=== PATIENT | female | born 2000 | race Caucasian/White ===

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

== ENCOUNTER 2018-06-08 11:51 | Emergency (ER) | payer SELFPAY ==
[~2018-06-08] VITALS: Ht 157.5 cm; Wt 50.0 kg
[~2018-06-08 11:51] MED LIST changes: -NORMAL SALINE IV ONE; +RANI150T21 PO; -RANI150T6 PO; -SINCALIDE IV ONE
--- NOTE | 2018-06-08 12:11 | PHYS DOC ---
Past History Past Medical History: No Pertinent History Past Surgical History: No Surgical History Smoking: Non-smoker Alcohol Use: None Drug Use: Marijuana Adult General Chief Complaint Chief Complaint: ABDOMINAL PAIN HPI HPI Patient is a 18-year-old female who presents with complaint of lower abdominal cramping that started 2 days ago. She also indicates that she has been having some nausea but no vomiting. Patient states that she is late on her menstrual cycle and believes that she could be but she also indicates that she has similar symptoms before her menstrual cycle starts. She rates pain as moderate. She denies any fever. She does admit to some urinary discomfort. Review of Systems Review of Systems Constitutional: Denies fever or chills [] Respiratory: Denies cough or shortness of breath [] Cardiovascular: No additional information not addressed in HPI [] GI: Complains of lower abdominal cramping with nausea. Denies vomiting or diarrhea [] : Positive dysuria without hematuria [] Musculoskeletal: Denies back pain or joint pain [] All other systems were reviewed and found to be within normal limits, except as documented in this note. Allergies Allergies Allergies Coded Allergies Type Severity Reaction Last Updated Verified No Known Drug Allergies 10/15/16 No Physical Exam Physical Exam Constitutional: Well developed, well nourished, no acute distress, non-toxic appearance. [] HENT: Normocephalic, atraumatic, bilateral external ears normal, oropharynx moist, no oral exudates, nose normal. [] Eyes: PERRLA, EOMI, conjunctiva normal, no discharge. [] Neck: Normal range of motion, no tenderness, supple, no stridor. [] Cardiovascular:Heart rate regular rhythm, no murmur [] Lungs & Thorax: Bilateral breath sounds clear to auscultation [] Abdomen: Bowel sounds normal, soft, no tenderness. [] Skin: Warm, dry, no erythema, no rash. [] Extremities: No tenderness, no cyanosis, no clubbing, ROM intact, no edema. [] Neurologic: Alert and oriented X 3, no focal deficits noted. [] EKG EKG [] Radiology/Procedures Radiology/Procedures [] Course & Med Decision Making Course & Med Decision Making Pertinent Labs and Imaging studies reviewed. (See chart for details) [] Dragon Disclaimer Dragon Disclaimer This electronic medical record was generated, in whole or in part, using a voice recognition dictation system. Departure Departure: Impression: Primary Impression: Abdominal pain affecting Disposition: HOME, SELF-CARE Condition: STABLE Referrals: MANOLO CEOLLO MD (PCP) Patient Instructions: Abdominal Pain During Scripts Ondansetron Hcl (ZOFRAN) 4 Mg Tablet 4 MG PO Q6HRS PRN for NAUSEA, #12 TAB Prov: BOB SCALES Jr. DO 06/08/18 BOB SCALES Jr. DO June 08, 2018 12:10
[2018-06-08 12:30] LABS: BASO % 1 % (0-3); EOS # 0.1 x10^3/uL (0.0-0.7); EOS % 2 % (0-3); HEMATOCRIT 39.7 % (36.0-47.0); HEMOGLOBIN 13.6 g/dL (12.0-15.5); LYMPH # 2.1 x10^3/uL (1.0-4.8); LYMPH % 30 % (24-48); MEAN CORPUSCULAR HEMOGLOBIN 29 pg (25-35); MEAN CORPUSCULAR HGB CONC 34 g/dL (31-37); MEAN CORPUSCULAR VOLUME 83 fL (79-100); MONO # 0.4 x10^3/uL (0.0-1.1); MONO % 6 % (0-9); NEUT # 4.2 x10^3uL (1.8-7.7); NEUT % 62 % (31-73); PLATELET COUNT 319 x10^3/uL (140-400); RED BLOOD COUNT 4.76 x10^6/uL (3.50-5.40); RED CELL DISTRIBUTION WIDTH 15.6 % (11.5-14.5); WHITE BLOOD COUNT 6.8 x10^3/uL (4.0-11.0)
[2018-06-08 12:38] LABS: BILIRUBIN,URINE NEG (NEG); CLARITY,URINE CLOUDY; COLOR,URINE YELLOW; GLUCOSE,URINE NEG (NEG)
[2018-06-08 12:39] LABS: BACTERIA,URINE MANY /HPF (0-FEW); NITRITE,URINE NEG (NEG); RBC,URINE 0 /HPF (0-2); SQUAMOUS EPITHELIAL CELL,UR MANY /LPF; UROBILINOGEN,URINE 0.2 mg/dL (0.2 mg/dL)
[2018-06-08 12:47] LABS: ALBUMIN 4.3 g/dL (3.4-5.0); ALBUMIN/GLOBULIN RATIO 1.3 (1.0-1.7); CALCIUM 9.5 mg/dL (8.5-10.1); CREATININE 0.7 mg/dL (0.6-1.0); GFR 106.7; POTASSIUM 4.1 mmol/L (3.5-5.1); TOTAL BILIRUBIN 0.5 mg/dL (0.2-1.0); TOTAL PROTEIN 7.5 g/dL (6.4-8.2)
[2018-06-08 13:31] VITALS: BP 121/80
[2018-06-08] MEDS ORDERED: ONDA4TAB7 PO (13:33)
== END 2018-06-08 13:35 | disposition home or self-care (01) ==
LOC: ER 11:51
DX: Z33.1 Pregnant state, incidental (principal); R10.30 Lower abdominal pain, unspecified; R11.0 Nausea
CPT/HCPCS: 36415; 80053; 81001; 81025; 84702; 85025; 87086; 99284

== ENCOUNTER 2018-12-10 05:27 | Emergency (ER) | payer OTHER ==
[~2018-12-10] VITALS: Ht 160 cm; Wt 70.3 kg
[~2018-12-10 05:27] MED LIST changes: +ONDA4TAB7 PO; +RANI-376 PO; -RANI150T21 PO
[2018-12-10] MEDS ORDERED: ONDANSETRON PF 4 MG/2 ML VIAL. IVP ONE (06:00)
[2018-12-10] MEDS ORDERED: IV NORMAL SALINE 1,000ML 1,000 ML IV ONE (06:00)
[2018-12-10] MEDS ORDERED: FAMOTIDINE 20 MG/2 ML VIAL IVP ONE (06:00)
--- NOTE | 2018-12-10 06:23 | PHYS DOC ---
Past History Past Medical History: No Pertinent History (AMANDA NEWMAN DO) Past Surgical History: No Surgical History (AMANDA NEWMAN DO) Smoking: Non-smoker Alcohol Use: None Drug Use: None, Marijuana (AMANDA NEWMAN DO) Adult General Chief Complaint Chief Complaint: ABDOMINAL PAIN IN HPI HPI 18-year-old female presents as at approximately 7 months with report of abdominal discomfort with associated nausea and vomiting. Denies fever. Denies dysuria. Denies trauma. Denies vaginal bleeding or discharge. Patient reports she is to deliver at [facility]. 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 (AMANDA NEWMAN DO) Current Medications Current Medications Current Medications Medications (Trade) Dose Ordered Sig/Ashley Start Time Stop Time Status Last Admin Dose Admin Famotidine (Pepcid Vial) 20 mg 1X ONCE 12/10/18 06:00 12/10/18 06:07 DC 12/10/18 06:17 20 MG Ondansetron HCl (Zofran) 4 mg 1X ONCE 12/10/18 06:00 12/10/18 06:07 DC 12/10/18 06:17 4 MG Sodium Chloride 1,000 ml @ 1,000 mls/hr 1X ONCE 12/10/18 06:00 12/10/18 06:59 12/10/18 06:17 1,000 MLS/HR (AMANDA NEWMAN DO) Allergies Allergies Allergies Coded Allergies Type Severity Reaction Last Updated Verified No Known Drug Allergies 10/15/16 No (AMANDA NEWMAN DO) Physical Exam Physical Exam Constitutional: Well developed, well nourished, no acute distress, non-toxic appearance HENT: Normocephalic, atraumatic, oropharynx moist Eyes: Conjunctiva normal, no discharge Neck: Normal range of motion, no tenderness, supple Cardiovascular: Heart rate normal, regular rhythm Lungs & Thorax: Bilateral breath sounds clear to auscultation, no wheezing Abdomen: Soft, gravid uterus, no guarding/rebound tenderness Skin: Warm, dry, no erythema, no rash Extremities: No tenderness, ROM intact, no edema Neurologic: Alert and oriented X 3, no focal deficits noted Psychologic: Affect normal, judgement normal (AMANDA NEWMAN DO) Current Patient Data Vital Signs Vital Signs Date Time Temp Pulse Resp B/P (MAP) Pulse Ox O2 Delivery O2 Flow Rate FiO2 12/10/18 05:37 98.5 108 16 98 Room Air (AMANDA NEWMAN DO) EKG EKG [] (AMANDA NEWMAN DO) Radiology/Procedures Radiology/Procedures [] (AMANDA NEWMAN DO) Impressions: EXAM: Obstetric ultrasound. HISTORY: Abdominal pain in . COMPARISON: None. FINDINGS: Sonographic evaluation of the pelvis and fetus was performed transabdominally. There is a single fetus in breech presentation. heart rate is 143 bpm. Estimated gestational age based on measurements is 32 weeks 6 days. Estimated weight is 1952 g. Biparietal diameter, head circumference, abdominal circumference and femur length are commensurate. The placenta is posterior. Amniotic fluid index is 11.2 cm. Limited images reveal no anomalies. The cervix is not well visualized currently. IMPRESSION: 1. Single fetus in breech presentation. Estimated gestational age 32 weeks 6 days. heart rate 143 bpm. Electronically signed by: Hasmukh Elliott MD (12/10/2018 8:06 AM) [facility] DICTATED AND SIGNED BY: TIGRE ELLIOTT MD DATE: 12/10/18805 CC: SULLY SHIPLEY DO; MANOLO COELLO MD; AMANDA NEWMAN DO ~ (SULLY SHIPLEY DO) Course & Med Decision Making Course & Med Decision Making Pertinent Labs and Imaging studies reviewed. (See chart for details) patient presents at 7 months with report of abdominal discomfort with associated nausea and vomiting. Symptomatic treatment provided. IV fluid hydration given. Labs obtained and pending. OB ultrasound ordered and pending. Sign out given to Dr. Shipley for further evaluation and final disposition. Discussed current findings and plan with patient and family, who acknowledge understanding and agreement. (AMANDA NEWMAN DO) Course & Med Decision Making The patient's ultrasound shows a live baby in the uterus and break presentation. No obvious abnormalities are noted. See official report for more details. The patient's urinalysis is suggestive of UTI. I will treat her with fosfomycin in the ED. She is feeling better at this time would like to go home. She has not had any bleeding or contractions. She is stable for discharge at this time. I have discussed with the patient that if she has abdominal pain the rest of her she should consider calling her OB and/or going to the [place] This would allow for the most resources to be immediately available for her baby. (SULLY SHIPLEY DO) Dragon Disclaimer Dragon Disclaimer This electronic medical record was generated, in whole or in part, using a voice recognition dictation system. (AMANDA NEWMAN DO) Departure Departure: Impression: Primary Impression: Abdominal pain in Additional Impression: UTI (urinary tract infection) Disposition: 01 HOME, SELF-CARE Condition: STABLE Referrals: MANOLO COELLO MD (PCP) Patient Instructions: Abdominal Pain During , [id number], - Urinary Tract Infection Problem Qualifiers Primary Impression: Abdominal pain in Trimester: third trimester Qualified Codes: O26.893 - Other specified related conditions, third trimester; R10.9 - Unspecified abdominal pain Additional Impression: UTI (urinary tract infection) Urinary tract infection type: acute cystitis Hematuria presence: without hematuria Qualified Codes: N30.00 - Acute cystitis without hematuria AMANDA NEWMAN DO Dec 10, 2018 06:23 SULYL SHIPLEY DO Dec 10, 2018 08:19
[2018-12-10 06:38] LABS: BASO % 0 % (0-3); EOS % 0 % (0-3); HEMATOCRIT 36.9 % (36.0-47.0); HEMOGLOBIN 12.1 g/dL (12.0-15.5); LYMPH % 8 % (24-48); MEAN CORPUSCULAR HEMOGLOBIN 27 pg (25-35); MEAN CORPUSCULAR HGB CONC 33 g/dL (31-37); MEAN CORPUSCULAR VOLUME 81 fL (79-100); MONO # 0.8 x10^3/uL (0.0-1.1); MONO % 6 % (0-9); NEUT # 10.5 x10^3uL (1.8-7.7); NEUT % 85 % (31-73); PLATELET COUNT 258 x10^3/uL (140-400); RED BLOOD COUNT 4.57 x10^6/uL (3.50-5.40); RED CELL DISTRIBUTION WIDTH 14.3 % (11.5-14.5); WHITE BLOOD COUNT 12.3 x10^3/uL (4.0-11.0)
[2018-12-10 06:49] LABS: BILIRUBIN,URINE NEG (NEG); CLARITY,URINE HAZY; COLOR,URINE YELLOW; GLUCOSE,URINE NEG (NEG); NITRITE,URINE NEG (NEG); UROBILINOGEN,URINE 2 mg/dL (0.2 mg/dL)
[2018-12-10 06:50] LABS: ALBUMIN 2.7 g/dL (3.4-5.0); ALBUMIN/GLOBULIN RATIO 0.6 (1.0-1.7); CALCIUM 8.3 mg/dL (8.5-10.1); CREATININE 0.4 mg/dL (0.6-1.0); GFR 203.5; MAGNESIUM 1.5 mg/dL (1.8-2.4); POTASSIUM 3.6 mmol/L (3.5-5.1); TOTAL BILIRUBIN 0.2 mg/dL (0.2-1.0)
[2018-12-10 06:50] LABS: BACTERIA,URINE MOD /HPF (0-FEW); SQUAMOUS EPITHELIAL CELL,UR MANY /LPF
--- NOTE | 2018-12-10 08:09 | RAD ---
EXAM: Obstetric ultrasound. HISTORY: Abdominal pain in . COMPARISON: None. FINDINGS: Sonographic evaluation of the pelvis and fetus was performed transabdominally. There is a single fetus in breech presentation. heart rate is 143 bpm. Estimated gestational age based on measurements is 32 weeks 6 days. Estimated weight is 1952 g. Biparietal diameter, head circumference, abdominal circumference and femur length are commensurate. The placenta is posterior. Amniotic fluid index is 11.2 cm. Limited images reveal no anomalies. The cervix is not well visualized currently. IMPRESSION: 1. Single fetus in breech presentation. Estimated gestational age 32 weeks 6 days. heart rate 143 bpm. Electronically signed by: Hasmukh Elliott MD (12/10/2018 8:06 AM) [facility]
[2018-12-10] MEDS ORDERED: FOSFOMYCIN TROMETHAMINE 3 GM PACKET PO ONE (08:30)
== END 2018-12-10 09:20 | disposition home or self-care (01) ==
LOC: ER 05:27
DX: O23.43 Unspecified infection of urinary tract in pregnancy, third trimester (principal); O21.9 Vomiting of pregnancy, unspecified; Z3A.32 32 weeks gestation of pregnancy
CPT/HCPCS: 36415; 76815; 80053; 81001; 83690; 83735; 85025; 87086; 96361; 96374; 96375; 99285; J2405; J3490; J7030

== ENCOUNTER 2019-01-29 16:33 | Emergency (ER) | payer OTHER ==
[~2019-01-29] VITALS: Ht 160 cm; Wt 50.0 kg
[2019-01-29] MEDS ORDERED: IV NORMAL SALINE 1,000ML 1,000 ML IV SCH (17:11)
[2019-01-29] MEDS ORDERED: KETOROLAC 30 MG/ML VIAL. IVP ONE (17:15)
--- NOTE | 2019-01-29 17:27 | PHYS DOC ---
Past History Past Medical History: No Pertinent History, Other Additional Past Medical Histor: preeclampsia (AYUSH URBINA DO) Past Surgical History: (AYUSH URBINA DO) Smoking: Non-smoker Alcohol Use: None Drug Use: None (AYUSH URBINA DO) Adult General Chief Complaint Chief Complaint: ABDOMINAL PAIN HPI HPI Patient is a 18-year-old female presents with lower abdominal pain/pelvic pain. She had a 9 days ago for preeclampsia, was released from [facility] 6 days ago after the . She has not yet filled her blood pressure medication. She pain has not changed in intensity since the procedure, nor since discharge. She has been taking her Percocet along with laxatives. Last bowel movement was yesterday. Increased pain with movement. She reports her incision site looks good, better than her first . She also notes some left back discomfort since coming home. Denies any cough or fever. Denies any dysuria or hematuria. Notes there is a mild amount of vaginal bleeding that has been waxing and waning but improving over time. She denies any trauma or bruising. Symptoms are 7 out of 10 in intensity.[] (AYUSH URBINA DO) Review of Systems Review of Systems Constitutional: Denies fever or chills [] Eyes: Denies change in visual acuity, redness, or eye pain [] HENT: Denies nasal congestion or sore throat [] Respiratory: Denies cough or shortness of breath [] Cardiovascular: No chest pain or palpitations[] GI: Denies bloody stools or diarrhea, see history of present illness [] : Denies dysuria or hematuria [] Musculoskeletal: See history of present illness[] Integument: Denies rash or skin lesions [] Neurologic: Denies headache, focal weakness or sensory changes [] Endocrine: Denies polyuria or polydipsia [] All other systems were reviewed and found to be within normal limits, except as documented in this note. (AYUSH URBINA DO) Allergies Allergies Allergies Coded Allergies Type Severity Reaction Last Updated Verified No Known Drug Allergies 10/15/16 No (AYUSH URBINA DO) Physical Exam Physical Exam Constitutional: Well developed, well nourished, no acute distress, non-toxic appearance. [] HENT: Normocephalic, atraumatic, bilateral external ears normal, oropharynx moist, no oral exudates, nose normal. [] Eyes: PERRLA, EOMI, conjunctiva normal, no discharge. [] Neck: Normal range of motion, no tenderness, supple, no stridor. [] Cardiovascular:Heart rate regular rhythm, no murmur [] Lungs & Thorax: Bilateral breath sounds clear to auscultation, no Rales, rhonchi, nor wheezes [] Abdomen: Bowel sounds normal, soft, suprapubic tenderness, bilaterally, no rebound, no guarding, no rigidity, able to sit up and lie back however with some discomfort, no masses, no pulsatile masses. Incision appears to be clean and dry, no active bleeding, no significant erythema, no drainage[] Skin: Warm, dry, no erythema, no rash. [] Back: Left midthoracic region has some tenderness to palpation. No subcutaneous emphysema, no crepitus., no CVA tenderness. [] Extremities: No tenderness, no cyanosis, no clubbing, ROM intact, no edema. [] Neurologic: Alert and oriented X 3, normal motor function, normal sensory function, no focal deficits noted. [] Psychologic: Affect normal, judgement normal, mood normal. [] (AYUSH URBINA DO) EKG EKG [] (AYUSH URBINA DO) Radiology/Procedures Radiology/Procedures [] (AYUSH URBINA DO) Impressions: PORTABLE CHEST 1V History: . Mid thoracic discomfort. Comparison: None. Findings: No consolidation or pleural effusion. Normal heart size. No pneumothorax. Impression: 1. No acute cardiopulmonary process. Electronically signed by: Tonio Mendiola DO (01/29/2019 6:34 PM) [facility] DICTATED AND SIGNED BY: TONIO MENDIOLA DO DATE: 01/29/19 183 CC: AYUSH URBINA DO; MANOLO COELLO MD ~ US PELVIS History: Pelvic pain. 9 days . . Comparison: None. Technique: Grayscale and color Doppler imaging of the pelvis was performed using transabdominal technique. Findings: The uterus measures 15.9 x 11.1 x 7.1 cm in length. Uterus has an unremarkable appearance. The endometrial stripe measures 1.37 cm. Small amount of fluid within the endometrial canal. No increased blood flow within the endometrial canal to suggest retained products of conception. Right ovary measures 3.1 x 2.0 x 1.4 cm and is unremarkable. Left ovary measures 3.5 x 3.9 x 1.8 cm and is unremarkable. No adnexal masses are seen. IMPRESSION: 1. Enlarged uterus. 2. Small amount of fluid within the major canal. No evidence of retained products of conception. Electronically signed by: Tonio Mendiola DO (01/29/2019 7:29 PM) [facility] DICTATED AND SIGNED BY: TONIO MENDIOLA DO DATE: 01/29/191928 CC: SULLY SHIPLEY DO; AYUSH URBINA DO; MANOLO COELLO MD ~ (SULLY SHIPLEY DO) Course & Med Decision Making Course & Med Decision Making Pertinent Labs and Imaging studies reviewed. (See chart for details) Emergency department course: Patient arrived, was placed in bed, and tolerated exam well. IV access was established, fluids and pain medicine were administered. Patient care was endorsed to the nighttime physician at 1800 with laboratory and imaging testing pending/in process. Medical decision making: Differential includes but is not limited to retained products of conception, obstruction, perforation, complications of preeclampsia, especially in light of her elevated blood pressure and her not taking the prev iously prescribed medicines, pneumonia, pneumothorax. Urinary tract infection/pyelonephritis.[] (AYUSH URBINA DO) Course & Med Decision Making The patient's labs are unremarkable. Her chest x-ray is unremarkable. Her pelvic ultrasound shows an enlarged uterus, but no retained products of conception. We have given her pain medication. She will need to follow up with her [employer] tomorrow. She is stable for discharge at this time. (SULLY SHIPLEY DO) Dragon Disclaimer Dragon Disclaimer This electronic medical record was generated, in whole or in part, using a voice recognition dictation system. (AYUSH URBINA DO) Departure Departure: Impression: Primary Impression: Postoperative abdominal pain Disposition: 01 HOME, SELF-CARE Condition: STABLE Referrals: MANOLO COELLO MD (PCP) Patient Instructions: Abdominal Pain, Women Scripts Oxycodone Hcl (OXYCODONE HCL IMMED.RELEASE ) 5 Mg Tablet 5 MG PO PRN Q6HRS PRN for PAIN, #10 TAB Prov: SULLY SHIPLEY DO 01/29/19 AYUSH URBINA DO Jan 29, 2019 17:27 SULLY SHIPLEY DO Jan 29, 2019 19:26
[2019-01-29 18:06] LABS: BASO # 0.1 x10^3/uL (0.0-0.2); BASO % 1 % (0-3); EOS # 0.2 x10^3/uL (0.0-0.7); EOS % 4 % (0-3); HEMATOCRIT 36.6 % (36.0-47.0); HEMOGLOBIN 11.9 g/dL (12.0-15.5); LYMPH # 2.2 x10^3/uL (1.0-4.8); LYMPH % 31 % (24-48); MEAN CORPUSCULAR HEMOGLOBIN 25 pg (25-35); MEAN CORPUSCULAR HGB CONC 32 g/dL (31-37); MEAN CORPUSCULAR VOLUME 78 fL (79-100); MONO # 0.5 x10^3/uL (0.0-1.1); MONO % 7 % (0-9); NEUT # 4.1 x10^3uL (1.8-7.7); NEUT % 58 % (31-73); PLATELET COUNT 564 x10^3/uL (140-400); RED BLOOD COUNT 4.72 x10^6/uL (3.50-5.40); RED CELL DISTRIBUTION WIDTH 16.3 % (11.5-14.5); WHITE BLOOD COUNT 7.2 x10^3/uL (4.0-11.0)
[2019-01-29 18:15] LABS: CALCIUM 8.9 mg/dL (8.5-10.1); CREATININE 0.7 mg/dL (0.6-1.0); GFR 106.7; POTASSIUM 3.7 mmol/L (3.5-5.1)
[2019-01-29 18:20] LABS: ALBUMIN 3.5 g/dL (3.4-5.0); ALBUMIN/GLOBULIN RATIO 0.8 (1.0-1.7); TOTAL BILIRUBIN 0.2 mg/dL (0.2-1.0); TOTAL PROTEIN 7.9 g/dL (6.4-8.2)
--- NOTE | 2019-01-29 18:37 | RAD ---
PORTABLE CHEST 1V History: . Mid thoracic discomfort. Comparison: None. Findings: No consolidation or pleural effusion. Normal heart size. No pneumothorax. Impression: 1. No acute cardiopulmonary process. Electronically signed by: Tonio Mendiola DO (01/29/2019 6:34 PM) [facility]
[2019-01-29 18:46] LABS: BILIRUBIN,URINE NEG (NEG); CLARITY,URINE CLEAR; COLOR,URINE YELLOW; GLUCOSE,URINE NEG (NEG)
[2019-01-29 18:47] LABS: BACTERIA,URINE 0 /HPF (0-FEW); NITRITE,URINE NEG (NEG); SQUAMOUS EPITHELIAL CELL,UR FEW /LPF; UROBILINOGEN,URINE 0.2 mg/dL (0.2 mg/dL); WBC,URINE OCC /HPF (0-4)
--- NOTE | 2019-01-29 19:32 | RAD ---
US PELVIS History: Pelvic pain. 9 days . . Comparison: None. Technique: Grayscale and color Doppler imaging of the pelvis was performed using transabdominal technique. Findings: The uterus measures 15.9 x 11.1 x 7.1 cm in length. Uterus has an unremarkable appearance. The endometrial stripe measures 1.37 cm. Small amount of fluid within the endometrial canal. No increased blood flow within the endometrial canal to suggest retained products of conception. Right ovary measures 3.1 x 2.0 x 1.4 cm and is unremarkable. Left ovary measures 3.5 x 3.9 x 1.8 cm and is unremarkable. No adnexal masses are seen. IMPRESSION: 1. Enlarged uterus. 2. Small amount of fluid within the major canal. No evidence of retained products of conception. Electronically signed by: Tonio Mendiola DO (01/29/2019 7:29 PM) [facility]
[2019-01-29 19:45] VITALS: BP 157/97
[2019-01-29] MEDS ORDERED: OXYC5TAB4 PO (19:49)
[2019-01-29] MEDS ORDERED: oxyCODONE IR 5 MG TABLET PO STA (20:10)
[2019-01-29] MEDS ORDERED: OXYC-325 PO (20:30)
== END 2019-01-29 20:35 | disposition home or self-care (01) ==
LOC: ER 16:33
DX: O90.89 Other complications of the puerperium, not elsewhere classified (principal); R10.31 Right lower quadrant pain; R10.32 Left lower quadrant pain; M54.6 Pain in thoracic spine; Z98.890 Other specified postprocedural states
CPT/HCPCS: 36415; 71045; 76856; 80053; 81001; 83690; 85025; 85610; 85730; 96374; 99285; J1885; J7030

== ENCOUNTER 2020-07-11 03:22 | Emergency (ER) | payer OTHER ==
[~2020-07-11] VITALS: Ht 160 cm; Wt 83.6 kg
[~2020-07-11 03:22] MED LIST changes: +OXYC-325 PO; +OXYC5TAB4 PO
[2020-07-11 03:30] VITALS: BP 151/87
[2020-07-11] MEDS ORDERED: ONDANSETRON ODT 4 MG TAB.RAPDIS PO ONE (03:30)
[2020-07-11] MEDS ORDERED: PNV1TABL78 PO (03:37)
--- NOTE | 2020-07-11 03:38 | PHYS DOC ---
Past History Past Medical History: No Pertinent History, Other Additional Past Medical Histor: preeclampsia Past Surgical History: Additional Past Surgical Histo: open heart as an infant Smoking: Non-smoker Alcohol Use: None Drug Use: None Adult General Chief Complaint Chief Complaint: VOMITING IN HPI HPI Patient is a 20-year-old female, at 28 weeks , who presents emergency department with 2 episodes of nonbloody nonbilious emesis. States she had problems with nausea vomiting in her first as well. States she has been doing well up until an hour or so ago. Denies any recent trauma, travels, fevers, chest pain, shortness of breath, abdominal pain, dysuria, hematuria or blood in the stool. Denies any vaginal bleeding, discharge, fluid discharge or pain. Denies a history of STIs. States she has seen her [facility] and has had an ultrasound. Denies any alcohol or drug use. Review of Systems Review of Systems Review of systems otherwise unremarkable except noted in HPI Current Medications Current Medications Current Medications Medications (Trade) Dose Ordered Sig/Ashley Start Time Stop Time Status Last Admin Dose Admin Diphenhydramine HCl (Benadryl) 25 mg 1X ONCE 07/11/20 04:00 07/11/20 04:01 Lactated Ringer's 1,000 ml @ 1,000 mls/hr 1X ONCE 07/11/20 04:00 07/11/20 04:59 Metoclopramide HCl (Reglan Vial) 10 mg 1X ONCE 07/11/20 04:00 07/11/20 04:01 Ondansetron HCl (Zofran Odt) 8 mg 1X ONCE 07/11/20 03:30 07/11/20 03:31 DC Allergies Allergies Allergies Coded Allergies Type Severity Reaction Last Updated Verified ceftriaxone Allergy Severe 01/29/19 Yes Physical Exam Physical Exam Constitutional: Well developed, well nourished, no acute distress, non-toxic appearance. [] HENT: Normocephalic, atraumatic, bilateral external ears normal, oropharynx moist, no oral exudates, nose normal. [] Eyes:conjunctiva normal, no discharge. [] Neck: Normal range of motion, no tenderness, supple, no stridor. [] Cardiovascular:Heart rate regular rhythm, no murmur [] Lungs & Thorax: Bilateral breath sounds clear to auscultation [] Abdomen: Bowel sounds normal, soft, no tenderness, no masses, no pulsatile masses. [] Skin: Warm, dry, no erythema, no rash. Capillary refill 4 seconds [] Back: No tenderness, no CVA tenderness. [] Extremities: No tenderness, no cyanosis, no clubbing, ROM intact, no edema. [] Neurologic: Alert and oriented X 3, no focal deficits noted. [] Psychologic: Affect normal, judgement normal, mood normal. [] EKG EKG [] Radiology/Procedures Radiology/Procedures [] Heart Score C/O Chest Pain: No Risk Factors: Risk Factors: DM, Current or recent (<one month) smoker, HTN, HLP, family history of CAD, obesity. Risk Scores: Risk Factors: DM, Current or recent (<one month) smoker, HTN, HLP, family history of CAD, obesity. Course & Med Decision Making Course & Med Decision Making Patient 20-year-old female at 28 weeks who presents with nausea and vomiting. Vital signs notable for tachycardia. Physical exam noted above. Patient placed on monitor with IV access established and IV fluid given. Given Zofran, Reglan and Benadryl. On reassessment patient feeling much better felt safe to discharge home. Given Rx of Zofran for home. Advised to call [facility] first thing Sunday morning to discuss her ED visit and set up appointment as soon as possible. Gave return precautions to the ED. Patient grateful, verbalized understanding and agreed with plan of discharge. [] Dragon Disclaimer Dragon Disclaimer This electronic medical record was generated, in whole or in part, using a voice recognition dictation system. Departure Departure: Impression: Primary Impression: Hyperemesis gravidarum Disposition: HOME / SELF CARE / HOMELESS Condition: GOOD Referrals: MANOLO COELLO MD (PCP) Patient Instructions: Diet - Hyperemesis Gravidarum, Hyperemesis Gravidarum, Nausea and Vomiting Additional Instructions: Please read all the attached information very carefully on your diagnosis and ways to manage at home. You are sent home with Zofran, nausea medicine prescription please use as needed and prescribed. Please call your [facility] or primary care physician on Sunday to update on ED visit and set up a follow-up visit. Please be sure to stay well-hydrated over the next couple of days and eat a light clear diet and do not eat anything heavy. Please come back to the ED with new or concerning symptoms as discussed. Scripts Ondansetron Hcl (ZOFRAN) 4 Mg Tablet 1 TAB PO PRN Q6HRS PRN for NAUSEA for 7 Days, #5 TAB 5 Refills Prov: RANDAL RASCON MD 07/11/20 RANDAL RASCON MD Jul 11, 2020 03:38
[2020-07-11] MEDS ORDERED: ONDANSETRON PF 4 MG/2 ML VIAL. ONE (03:42)
[2020-07-11] MEDS ORDERED: ONDA4TAB7 PO (03:59)
[2020-07-11] MEDS ORDERED: IV RINGERS SOLUTION,LACTATED 1,000 ML IV ONE (04:00)
[2020-07-11] MEDS ORDERED: diphenhydrAMINE 50 MG/ML VIAL IVP ONE (04:00)
[2020-07-11] MEDS ORDERED: METOCLOPRAMIDE HCL 10 MG/2 ML VIAL. IVP ONE (04:00)
[2020-07-11 04:24] LABS: BILIRUBIN,URINE SMALL (NEG); CLARITY,URINE CLEAR; COLOR,URINE YELLOW; GLUCOSE,URINE NEG (NEG); NITRITE,URINE NEG (NEG); RBC,URINE 0 /HPF (0-2)
[2020-07-11 04:25] LABS: BACTERIA,URINE MOD /HPF (0-FEW); SQUAMOUS EPITHELIAL CELL,UR MOD /LPF
[2020-07-11] MEDS ORDERED: ONDANSETRON PF 4 MG/2 ML VIAL. IVP ONE (04:30)
[2020-07-11] MEDS ORDERED: ONDANSETRON 4MG ODT 4TABLET STARTPACK. PO ONE ×2 (05:25→07:00)
== END 2020-07-11 05:29 | disposition home or self-care (01) ==
LOC: ER 03:22
DX: O21.0 Mild hyperemesis gravidarum (principal); Z3A.28 28 weeks gestation of pregnancy; Z88.8 Allergy status to other drugs, medicaments and biological substances
CPT/HCPCS: 81001; 87086; 96361; 96374; 96375; 99284; J1200; J2405; J2765; J7120; Q0162